=== PATIENT | male | born 1945 | race Caucasian/White ===

== ENCOUNTER 2016-08-27 07:13 | Outpatient (CLI) | payer MEDICARE | END 2016-08-27 07:14 | disposition home or self-care (01) | DX: R97.20 Elevated prostate specific antigen [PSA] (principal) ==

== ENCOUNTER 2018-02-15 16:45 | Outpatient (CLI) | payer MEDICARE ==
--- NOTE | 2018-02-17 10:15 | MRI Report ---
Procedure Date: 02/15/2018 Accession Number: [id number] / [id number] Procedure: MRI - Lumbar Spine W/O CPT Code: FULL RESULT: EXAM: MRI LUMBAR SPINE WITHOUT CONTRAST EXAM DATE: 02/15/2018 06:52 PM. CLINICAL HISTORY: Sciatica, right. Lifting injury 10 weeks ago. COMPARISON: None. TECHNIQUE: Multiplanar, multisequence T1-weighted and fluid-sensitive sequences of the lumbar spine from T12 to S1 without contrast. Other: None. FINDINGS: Spinal Cord: The conus terminates at L1. The conus medullaris is unremarkable. Crowding of cauda equina nerve roots is seen, most severe at L4-L5 and L3-L4. Alignment: Mild dextrorotatory curvature of the lumbar spine is seen centered at L3. No significant spondylolisthesis. Bone Marrow: Five [id number] lumbar vertebral bodies are assumed. There is an acute compression fracture of the L2 vertebral body superior endplate. Fracture lines are seen extending through the superior endplate as well as the adjacent anterior and posterior cortical margins (A3--incomplete burst fracture by the [employer] thoracolumbar classification system). Bone marrow edema is seen throughout the L2 vertebral body. Mild paraspinous edema is present. No retropulsed fracture fragments are seen. Disk Levels/Facets: T10-T11: Evaluated on sagittal series. Mild left-sided degenerative facet change is seen. No stenosis. T11-T12: Unremarkable on sagittal series. T12-L1: Unremarkable on sagittal series. L1-L2: Mild circumferential disk bulge is seen. Mild thickening of the ligamentum flavum is noted. Effacement of the thecal sac is seen. No stenosis. L2-L3: Mild thickening of the ligamentum flavum is noted. Moderate loss of disk space height is seen. Diskogenic endplate irregularity is noted. Minimal dorsal with mild ventral circumferential disk bulge is seen. Effacement of the thecal sac is noted. No stenosis. L3-L4: Moderate thickening of the ligamentum flavum is seen bilaterally. Moderate loss of disk space height is present. Mild circumferential disk bulge is seen. Effacement of the thecal sac and descending L4 nerve roots is seen with crowding of cauda equina nerve roots. Moderate canal stenosis is present. Mild effacement of exiting L3 nerve roots is seen without foraminal stenosis. L4-L5: Mild thickening of the ligamentum flavum is noted bilaterally. Mild loss of disk space height is seen with T2 hypointense disk signal. Mild circumferential disk bulge is present. Focal dorsal subligamentous disk protrusion is seen. Marked effacement of the thecal sac with crowding of cauda equina nerve roots is noted. Marked canal stenosis is present. Effacement of proximal descending L5 nerve roots is seen with moderate lateral recess stenosis as well. Mild effacement of exiting right L4 nerve root is seen without foraminal stenosis. L5-S1: Mild degenerative facet change is seen. T2 hypointense disk signal is present. Mild lateral and ventral disk bulge. No stenosis. Musculature: Normal. No edema or fatty atrophy. Other: The partially visualized retroperitoneum is unremarkable. IMPRESSION: 1. Acute mild, 35%, compression fracture of the L2 vertebral body as noted above. No retropulsed fracture fragments. 2. Spondylosis throughout the lumbar spine as noted above. Mild dextroscoliosis is seen centered at L3. 3. L4-L5: Spondylosis. Central dorsal disk protrusion. Marked canal stenosis. Bilateral moderate lateral recess stenosis. 4. L3-L4: Spondylosis with degenerative disk and facet change. Moderate canal stenosis. Critical Result: We are paging the referring physician to be made aware of these findings. Findings are discussed with the PA for the referring physician on 02/17/2018 at 0935 hrs. Comment: The following findings are so common in adults without low back pain that while we report their presence, they must be interpreted with caution and in the context of the clinical situation. (Reference Nielsk et al, Spine 2001) Prevalence of findings in patients without low back pain: Disk degeneration (any evidence): 92% Disk desiccation/T2 signal loss: 83% Disk height loss: 56% Disk bulge: 64% Disk protrusion: 32% Annular tear/high intensity zone: 38% RADIA
== END 2018-02-15 16:46 | disposition home or self-care (01) ==
LOC: DI 16:45
PROVIDERS: ATTEND Family Medicine
DX: S32.029A Unspecified fracture of second lumbar vertebra, initial encounter for closed fracture (principal); M47.896 Other spondylosis, lumbar region; M51.26 Other intervertebral disc displacement, lumbar region; M51.36 Other intervertebral disc degeneration, lumbar region; M48.061 Spinal stenosis, lumbar region without neurogenic claudication
CPT/HCPCS: 72148

== ENCOUNTER 2018-03-22 09:19 | Outpatient (CLI) | payer MEDICARE ==
[2018-03-22 12:43] LABS: BASOPHILS % (AUTO) 0.5 %; EOSINOPHILS # (AUTO) 0.2 10^3/uL (0.0-0.7); EOSINOPHILS % (AUTO) 4.1 %; HGB - HEMOGLOBIN 13.5 g/dL (14.0-18.0); LYMPHOCYTES # (AUTO) 1.3 10^3/uL (1.5-3.5); LYMPHOCYTES % (AUTO) 29.5 %; MEAN CORPUSCULAR HEMOGLOBIN 31.2 pg (27.0-31.0); MEAN CORPUSCULAR HGB CONC 34.3 g/dL (32.0-36.0); MEAN CORPUSCULAR VOLUME 91.1 fL (80.0-94.0); MEAN PLATELET VOLUME 8.6 fL (7.4-11.4); MONOCYTES # (AUTO) 0.5 10^3/uL (0.0-1.0); MONOCYTES % (AUTO) 11.1 %; NEUTROPHILS # (AUTO) 2.5 10^3/uL (1.5-6.6); NEUTROPHILS % (AUTO) 54.8 %; PLT - PLATELET COUNT 221 10^3/uL (130-450); RED BLOOD COUNT 4.33 10^6/uL (4.70-6.10); RED CELL DISTRIBUTION WIDTH 13.6 % (12.0-15.0); WHITE BLOOD COUNT 4.5 x10^3/uL (4.8-10.8)
[2018-03-22 13:33] LABS: ALBUMIN 4.1 g/dL (3.2-5.5); ALBUMIN/GLOBULIN RATIO 1.6 (1.0-2.2); ALKALINE PHOSPHATASE 96 IU/L (42-121); ALT ALANINE AMINOTRANSFERASE 19 IU/L (10-60); AST ASPARTATE AMINOTRANSFERASE 21 IU/L (10-42); BILIRUBIN,TOTAL 0.7 mg/dL (0.2-1.0); BUN - BLOOD UREA NITROGEN 18 mg/dL (6-20); CALCIUM 9.2 mg/dL (8.5-10.3); CARBON DIOXIDE - CO2 28 mmol/L (21-32); CHLORIDE 105 mmol/L (101-111); CHOL/HDL RATIO 3.9 (<5.0); CHOLESTEROL 188 mg/dL; GFR - MDRD 74 (>89); GLUCOSE 93 mg/dL (70-100); HDL CHOLESTEROL 48 mg/dL; LDL CHOLESTEROL,CALCULATED 117 mg/dL; LDL/HDL RATIO 2.4 (<3.6); SODIUM 139 mmol/L (135-145); TOTAL PROTEIN 6.7 g/dL (6.7-8.2); VLDL CHOLESTEROL 23 mg/dL
== END 2018-03-22 09:20 | disposition home or self-care (01) ==
LOC: LAB.WCP 09:19
PROVIDERS: ATTEND Family Medicine
DX: E78.5 Hyperlipidemia, unspecified (principal); R03.0 Elevated blood-pressure reading, without diagnosis of hypertension
CPT/HCPCS: 36415; 80053; 80061; 83721; 85025

== ENCOUNTER 2018-03-28 10:36 | Outpatient (CLI) | payer MEDICARE ==
[2018-03-28 13:19] LABS: % IRON SATURATION 29 % (20-50); IRON 124 ug/dL (45-182); TOTAL IRON BINDING CAPACITY 430 ug/dL (250-450); TRANSFERRIN 307 mg/dL (180-329)
[2018-03-28 15:14] LABS: FERRITIN 19.5 ng/mL (23.9-336.2)
[2018-03-28 15:18] LABS: FOLATE 6.05 ng/mL (5.90 - >24.8)
== END 2018-03-28 10:37 | disposition home or self-care (01) ==
LOC: LAB.WCP 10:36
PROVIDERS: ATTEND Family Medicine
DX: M48.55XA Collapsed vertebra, not elsewhere classified, thoracolumbar region, initial encounter for fracture (principal); D64.9 Anemia, unspecified
CPT/HCPCS: 36415; 82306; 82607; 82728; 82746; 83540; 84466

== ENCOUNTER 2018-04-26 08:00 | Outpatient (CLI) | payer MEDICARE ==
[2018-04-26 13:46] LABS: PSA FREE 1.12 ng/mL (0.16-2.81)
[2018-04-26 13:48] LABS: PSA TOTAL 6.9 ng/mL (0.000-2.000)
== END 2018-04-26 08:01 | disposition home or self-care (01) ==
LOC: LAB.WCP 08:00
PROVIDERS: ATTEND Urology
DX: R97.20 Elevated prostate specific antigen [PSA] (principal)
CPT/HCPCS: 36415; 84154

== ENCOUNTER 2018-05-19 11:38 | Outpatient (CLI) | payer MEDICARE ==
[2018-05-19 19:13] LABS: BUN - BLOOD UREA NITROGEN 15 mg/dL (6-20); CALCIUM 8.9 mg/dL (8.5-10.3); CARBON DIOXIDE - CO2 26 mmol/L (21-32); CHLORIDE 106 mmol/L (101-111); CREATININE 0.7 mg/dL (0.6-1.2); GFR - MDRD 111 (>89); GLUCOSE 96 mg/dL (70-100); SODIUM 137 mmol/L (135-145)
[2018-05-19 19:32] LABS: THYROID STIMULATING HORMONE 0.58 uIU/mL (0.34-5.60)
== END 2018-05-19 11:39 | disposition home or self-care (01) ==
LOC: LAB.WCP 11:38
PROVIDERS: ATTEND Family Medicine
DX: M81.0 Age-related osteoporosis without current pathological fracture (principal)
CPT/HCPCS: 36415; 80048; 82306; 83970; 84443

== ENCOUNTER 2018-11-01 08:00 | Outpatient (CLI) | payer MEDICARE | END 2018-11-01 23:59 | disposition home or self-care (01) | LOC: LAB.WCP 08:00 | PROVIDERS: ATTEND Family Medicine | DX: M12.849 Other specific arthropathies, not elsewhere classified, unspecified hand (principal); M81.0 Age-related osteoporosis without current pathological fracture | CPT/HCPCS: 36415; 82306 ==

== ENCOUNTER 2019-05-15 08:00 | Outpatient (CLI) | payer MEDICARE | END 2019-05-15 08:01 | disposition home or self-care (01) | LOC: LAB.WCP 08:00 | PROVIDERS: ATTEND Urology | DX: R97.20 Elevated prostate specific antigen [PSA] (principal) | CPT/HCPCS: 36415; 84153 ==